=== PATIENT | female | born 1985 | race African-American/Black ===

== ENCOUNTER 2017-01-08 22:02 | Emergency (ER) | payer MEDICAID ==
[~2017-01-08] VITALS: Ht 170.2 cm; Wt 87.1 kg
[2017-01-08 22:03] VITALS: BP 130/83
[2017-01-08] MEDS ORDERED: IBUPROFEN 200 MG TABLET PO ONE (23:00)
[2017-01-08] MEDS ORDERED: IBUPROFEN 200 MG TABLET ONE (23:04)
== END 2017-01-09 00:10 | disposition home or self-care (01) ==
LOC: ED 23:55
DX: S66.512A Strain of intrinsic muscle, fascia and tendon of right middle finger at wrist and hand level, initial encounter (principal); S86.112A Strain of other muscle(s) and tendon(s) of posterior muscle group at lower leg level, left leg, initial encounter; W19.XXXA Unspecified fall, initial encounter; Y93.89 Activity, other specified; Y92.410 Unspecified street and highway as the place of occurrence of the external cause; Y99.9 Unspecified external cause status
CPT/HCPCS: 99284

== ENCOUNTER 2017-04-02 07:24 | Emergency (ER) | payer MEDICAID ==
[~2017-04-02] VITALS: Ht 152.4 cm; Wt 90.2 kg
[2017-04-02] MEDS ORDERED: HYDROcodone/APAP 5/325 TABLET PO ONE (08:30)
[2017-04-02] MEDS ORDERED: HYDROcodone/APAP 5/325 TABLET ONE (08:42)
[2017-04-02 09:04] VITALS: BP 112/71
== END 2017-04-02 09:10 | disposition home or self-care (01) ==
LOC: ED 07:50
DX: S06.0X9A Concussion with loss of consciousness of unspecified duration, initial encounter (principal); S00.81XA Abrasion of other part of head, initial encounter; Y04.0XXA Assault by unarmed brawl or fight, initial encounter; Y93.89 Activity, other specified; Y99.8 Other external cause status; Y92.488 Other paved roadways as the place of occurrence of the external cause
CPT/HCPCS: 70450; 99284

== ENCOUNTER 2017-05-17 19:34 | Emergency (ER) | payer MEDICAID ==
[~2017-05-17] VITALS: Ht 172.7 cm; Wt 93.7 kg
[2017-05-17 19:35] VITALS: BP 124/78
== END 2017-05-17 20:55 | disposition home or self-care (01) ==
LOC: ED 20:40
DX: S46.912A Strain of unspecified muscle, fascia and tendon at shoulder and upper arm level, left arm, initial encounter (principal); X58.XXXA Exposure to other specified factors, initial encounter; Y93.89 Activity, other specified; Y92.89 Other specified places as the place of occurrence of the external cause; Y99.8 Other external cause status
CPT/HCPCS: 99284

== ENCOUNTER 2020-12-16 02:05 | Emergency (ER) | payer MEDICAID ==
[~2020-12-16] VITALS: Ht 172.7 cm; Wt 90.0 kg
[2020-12-16 02:08] VITALS: BP 140/74
[2020-12-16] MEDS ORDERED: LIDOCAINE-MPF 1%, 2ML ONE (02:42)
[2020-12-16] MEDS ORDERED: LIDOCAINE-MPF 1%, 5ML INFIL ONE (03:00)
== END 2020-12-16 03:03 | disposition home or self-care (01) ==
LOC: ED 02:35
DX: L02.411 Cutaneous abscess of right axilla (principal); M79.621 Pain in right upper arm; F17.210 Nicotine dependence, cigarettes, uncomplicated; Z72.9 Problem related to lifestyle, unspecified
CPT/HCPCS: 10060; 99406